=== PATIENT | male | born 1960 | race Caucasian/White ===

== ENCOUNTER 2021-02-11 11:37 | Emergency (ER) | payer MEDICARE ==
[~2021-02-11] VITALS: Ht 203.2 cm; Wt 118.2 kg
[~2021-02-11 11:37] MED LIST: CYCL-1 PO
[2021-02-11 12:45] VITALS: BP 166/102
[2021-02-11] MEDS ORDERED: ketorolac tromethamine 15mg/ml inj. IM ONE (14:50)
[2021-02-11] MEDS ORDERED: LIDOcaine 5% patch TP STA (14:50)
[2021-02-11] MEDS ORDERED: LIDO700A32 TOP (15:11)
== END 2021-02-11 15:27 | disposition home or self-care (01) ==
LOC: ER 11:37
DX: S46.002A Unspecified injury of muscle(s) and tendon(s) of the rotator cuff of left shoulder, initial encounter (principal); M25.512 Pain in left shoulder; Z98.890 Other specified postprocedural states; Z72.89 Other problems related to lifestyle; Z79.899 Other long term (current) drug therapy; X58.XXXA Exposure to other specified factors, initial encounter; Y93.89 Activity, other specified; Y92.89 Other specified places as the place of occurrence of the external cause; Y99.8 Other external cause status
CPT/HCPCS: 73030; 96372; 99283; J1885

== ENCOUNTER 2021-06-24 05:38 | Emergency (ER) | payer MEDICARE ==
[~2021-06-24] VITALS: Ht 200.7 cm; Wt 92.0 kg
[~2021-06-24 05:38] MED LIST changes: +LIDO700A32 TOP
[2021-06-24 06:13] VITALS: BP 186/110
[2021-06-24 08:52] LABS: CLARITY,URINE CLEAR (Clear); COLOR,URINE YELLOW (Yellow); GLUCOSE, URINE NEGATIVE (Neg); KETONES,URINE NEGATIVE (Neg); LEUKOCYTE ESTERASE ,URINE NEGATIVE (Neg); NITRITES, URINE NEGATIVE (Neg); OCCULT BLOOD,URINE NEGATIVE (Neg); PROTEIN,URINE NEGATIVE (Neg); UA COLLECTION TYPE VOIDED; UROBILINOGEN,URINE 0.2 E.U/dL (0.2-1.0)
[2021-06-24] MEDS ORDERED: ketorolac trometh. 30mg/ml inj. IM ONE (09:45)
[2021-06-24] MEDS ORDERED: HYDR-3972 PO (09:48)
[2021-06-24] MEDS ORDERED: HYDROcodone/acetaminophen 10/325mg tab PO ONE (09:50)
--- NOTE | 2021-06-24 10:01 | NUR ---
PT. BECAME TEARFUL UPON ME GOING TO DISCHARGE HIM... HE WAS UNHAPPY THAT WE ONLY ADDRESSED HIS RASH.. I HAD DR. BRIZUELA COME TALK TO THE PT. PT. ASKED DR. BRIZUELA TO REFER HIM TO AN ORTHOPEDIST.. WHEN DR. BRIZUELA EXPLAINED TO HIM THAT THE [facility] DOES NOT ALLOW ER PHYSICIANS TO REFER PT'S. IT HAS TO COME FROM THERE PMD ONLY... PT BECAME FURTHER UP SET BECAUSE HE HAS TO GO BACK TO HIS PMD DR. MARTIN... I TOLD HIM TO SIT DOWN ON THE BED AND TAKE A FEW DEEP BREATHS THAT DR. BRIZUELA WAS ORDERING HIM SOME PAIN MEDS FOR HIS HIP... I WENT TO GET THE TORODOL AND DR. BRIZUELA WAS GOING TO DISPENSE 1 NORCO FOR HIM TO TAKE AT HOME WHILE HE WAITED FOR THE RX TO BE FILLED BECAUSE HE DROVE HIS CAR HERE... WHEN I RETURNED TO THE ROOM TO GIVE HIS MEDICATION PT. HAD LEFT ROOM 18 AND GIVEN THE DOUBLE MIDDLE FINGER TO ER ADMITING STAFF AND WALKED OUT OF THE DEPARTMENT.... TORDOL WASED AND NORCO RETURNED TO [facility]
== END 2021-06-24 10:25 | disposition home or self-care (01) ==
LOC: ER 05:39
DX: R21 Rash and other nonspecific skin eruption (principal); M25.59 Pain in other specified joint; Z98.890 Other specified postprocedural states; Z72.89 Other problems related to lifestyle; Z79.899 Other long term (current) drug therapy
CPT/HCPCS: 81003; 99283